=== PATIENT | male | born 1930 | race Two or more races ===

== ENCOUNTER 2017-05-29 10:52 | Outpatient (CLI) | payer OTHER ==
[~2017-05-29 10:52] MED LIST: ACID REDUCER20 MG; AMLODIPINE BES2.5 MG; ANTIVERT25 M1 PO; ANTIVERT25 MG PO; ASA81 MG; ASPIR 8181 MG; COSOP; COSOPT PF EYE1 EACH; DICLOFENAC SODI50 MG PO; FINASTERIDE5 MG; FISH OIL; FOLIC ACID1 MG; INTEGRA F CAPS1 EACH; INTESTINEX1 CAP PO; MUCINEX50 MG/BOX PO; PANTOPRAZOLE SO40 MG; PRED FORTE1 ML OP; PRINIVIL5 MG; PROTONIX40 MG PO; SIMVASTATIN20 MG; TOLTERODINE TART4 MG; VASOFLEX D1 CA1 EACH; VASOFLEX FORTE1 CAP; [UNRECOGNIZED DRUG - OTHER]; [UNRECOGNIZED DRUG - OTHER]
== END 2017-05-29 10:58 | disposition home or self-care (01) ==
LOC: SONOGRAMA 10:52
DX: N20.0 Calculus of kidney (principal); N40.1 Benign prostatic hyperplasia with lower urinary tract symptoms; R31.9 Hematuria, unspecified

== ENCOUNTER 2017-07-05 16:33 | Outpatient (CLI) | payer OTHER | END 2017-07-05 16:41 | disposition home or self-care (01) | LOC: RAD 16:33 | DX: J45.998 Other asthma (principal) ==

== ENCOUNTER → 2017-08-14 | Emergency (ER) | payer OTHER ==
[~2017-08-14] VITALS: Ht 170.2 cm; Wt 78.0 kg
== END | disposition home or self-care (01) ==
LOC: ER 20:49
DX: B34.9 Viral infection, unspecified (principal)

== ENCOUNTER → 2017-08-19 | Emergency (ER) | payer OTHER ==
[~2017-08-19] VITALS: Ht 170.2 cm; Wt 77.1 kg
== END | disposition home or self-care (01) ==
LOC: ER 17:18
DX: S70.02XA Contusion of left hip, initial encounter (principal); S30.0XXA Contusion of lower back and pelvis, initial encounter; W18.39XA Other fall on same level, initial encounter; Y93.89 Activity, other specified; Y92.092 Bedroom in other non-institutional residence as the place of occurrence of the external cause; Y99.8 Other external cause status

== ENCOUNTER 2017-10-13 11:42 | Outpatient (CLI) | payer OTHER | END 2017-10-13 14:43 | disposition home or self-care (01) | LOC: MRI 11:42 | DX: I62.00 Nontraumatic subdural hemorrhage, unspecified (principal); I62.03 Nontraumatic chronic subdural hemorrhage; S06.5X9A Traumatic subdural hemorrhage with loss of consciousness of unspecified duration, initial encounter | CPT/HCPCS: 70553; A9579 ==